=== PATIENT | female | born 1990 | race Caucasian/White ===

== ENCOUNTER 2020-06-25 23:27 | Emergency (ER) | payer MEDICAID, SELFPAY ==
[~2020-06-25] VITALS: Ht 162.6 cm; Wt 85.3 kg
[2020-06-25 23:30] VITALS: BP 118/85; Ht 162.6 cm; Wt 85.3 kg
== END 2020-06-26 01:09 | disposition home or self-care (01) ==
LOC: ED 23:27
DX: U07.1 COVID-19 (principal); R42 Dizziness and giddiness
CPT/HCPCS: 82962; Q0162

== ENCOUNTER 2020-08-21 15:19 | Emergency (ER) | payer OTHER ==
[~2020-08-21] VITALS: Ht 162.6 cm; Wt 81.6 kg
[2020-08-21 15:26] VITALS: BP 105/74; Ht 162.6 cm; Wt 81.6 kg
== END 2020-08-21 16:25 | disposition home or self-care (01) ==
LOC: ED 15:19
DX: S93.402A Sprain of unspecified ligament of left ankle, initial encounter (principal); W01.0XXA Fall on same level from slipping, tripping and stumbling without subsequent striking against object, initial encounter; Y93.89 Activity, other specified; Y92.89 Other specified places as the place of occurrence of the external cause; Y99.8 Other external cause status